=== PATIENT | female | born 1995 ===

== ENCOUNTER 2017-01-20 11:59 | Observation (INO) | payer OTHER ==
[2017-01-20 12:08] VITALS: BMI 28.3
[2017-01-20 12:09] VITALS: RESP 18
--- NOTE | 2017-01-20 12:25 | C.PDOC ---
History Of Present Illness 21 Y/O FEMALE, , APPX 8 WEEKS , PRESENTS C/O VAGINAL BLEEDING. PT SEEN IN ER ON 01/09/17 FOR SIMILAR. DENIES ABDOMINAL PAIN, NAUSEA, VOMITING, URINARY SYMPTOMS, DIZZINESS, OR OTHER ASSOC SX. PT NOTES SHE HAS HAD ULTRASOUND DURING THIS . NO OB FOLLOW UP SINCE LAST ER VISIT BUT NOTES APPOINTMENT SCHEDULED NEXT WEEK. US 01/10 = +IUP Time Seen by Provider: 01/20/17 12:21 Chief Complaint (Nursing): Female Genitourinary History Per: Patient History/Exam Limitations: no limitations Onset/Duration Of Symptoms: Days Current Symptoms Are (Timing): Still Present Pain Scale Rating Of: 0 Associated Symptoms: Other (VAGINAL BLEEDING). denies: Fever, Chills, Nausea, Vomiting, Urinary Symptoms Recent travel outside of the [place]: No Abnormal Vaginal Bleeding: Yes : 1 Para: 0 Miscarriage: 0 Past Medical History Reviewed: Historical Data, Nursing Documentation, Vital Signs Vital Signs: Last Vital Signs Temp 98.1 F 01/20/17 14:05 Pulse 99 H 01/20/17 14:05 Resp 18 01/20/17 14:05 BP 119/74 01/20/17 14:05 Pulse Ox 100 01/20/17 15:40 - Medical History PMH: No Chronic Diseases Family History: States: Unknown Family Hx - Social History Hx Alcohol Use: No Hx Substance Use: No - Immunization History Hx Tetanus Toxoid Vaccination: No Hx Influenza Vaccination: No Hx Pneumococcal Vaccination: No Review Of Systems Except As Marked, All Systems Reviewed And Found Negative. Constitutional: Negative for: Fever, Chills Cardiovascular: Negative for: Chest Pain Respiratory: Negative for: Shortness of Breath Gastrointestinal: Negative for: Nausea, Vomiting, Abdominal Pain Genitourinary: Positive for: Vaginal Bleeding. Negative for: Dysuria, Frequency Skin: Negative for: Rash Physical Exam - Physical Exam Appears: Non-toxic, No Acute Distress Skin: Normal Color, Warm, Dry Head: Atraumatic, Normacephalic Oral Mucosa: Moist Chest: Symmetrical Cardiovascular: Rhythm Regular Respiratory: Normal Breath Sounds, No Rales, No Rhonchi, No Wheezing Gastrointestinal/Abdominal: Soft, No Tenderness, No Guarding, No Rebound Back: Normal Inspection Extremity: Normal ROM, Capillary Refill (< 2 sec. ) Neurological/Psych: Oriented x3, Normal Speech, Normal Cognition ED Course And Treatment - Laboratory Results Result Diagrams: 01/20/17 13:04 01/20/17 13:04 O2 Sat by Pulse Oximetry: 100 (RA) Pulse Ox Interpretation: Normal - Other Rad PELVIC X-Ray: Read By Radiologist (Intrauterine corresponding to a gestational age of 7 weeks and 2 days with crown-rump length of 1.1 centimeters. heart rate of 150 beats per minute. ) Progress - Data Reviewed Data Reviewed: Old records ED OBSERVATION Discharge: Yes Date of observation admission: 01/20/17 Time of observation admission: 12:30 - Observation admission statement Patient is being placed in observation because:: +IUP, VAG BLEED - Goals of Observation Goals of observation are:: NEG SURG ABD - Progress Note Progress Note: 01/20/17 15:46 EXAM UNCH FROM PRIOR. VSS APPEARS COMFORTABLE. FU OBGYN Disposition Counseled Patient/Family Regarding: Studies Performed, Diagnosis, Need For Followup - Disposition Disposition: HOME/ ROUTINE Disposition Time: 15:46 Condition: GOOD - Clinical Impression Clinical Impression: Threatened in first trimester - Scribe Statement The provider has reviewed the documentation as recorded by the Scribe Edward Iraheta Provider Attestation: Provider Scribe Attestation: All medical record entries made by the Scribe were at my direction and personally dictated by me. I have reviewed the chart and agree that the record accurately reflects my personal performance of the history, physical exam, medical decision making, and the department course for this patient. I have also personally directed, reviewed, and agree with the discharge instructions and disposition.
[2017-01-20 12:58] LABS: RBC URINE 1268 /hpf (0-3); URINE BILIRUBIN NEGATIVE (NEGATIVE); URINE BLOOD 3+ (NEGATIVE); URINE COLOR Yellow (YELLOW); URINE GLUCOSE (UA) NORMAL (Normal); URINE KETONE TRACE mg/dL (NEGATIVE); URINE LEUKOCYTE ESTERASE TRACE Leu/uL (Negative); URINE PROTEIN 1+ mg/dL (NEGATIVE); URINE UROBILINOGEN NORMAL mg/dL (0.2-1.0); WBC URINE 26 /hpf (0-5)
[2017-01-20 13:19] LABS: BASO % 0.3 % (0.0-2.0); EOS # 0.1 K/uL (0.0-0.7); EOS % 1.4 % (0.0-4.0); HEMATOCRIT 33.9 % (34.0-47.0); LYMPH # 1.4 K/uL (1.0-4.3); LYMPH % 16.7 % (20.0-40.0); MEAN CELL VOLUME 77.1 fL (81.0-99.0); MEAN CORPUSCULAR HEMOGLOBIN 24.6 pg (27.0-31.0); MEAN PLATELET VOLUME 9.2 fL (7.2-11.7); MONO # 0.9 K/uL (0.0-0.8); MONO % 10.3 % (0.0-10.0); RED CELL DISTRIBUTION WIDTH 18.6 % (11.5-14.5); WHITE BLOOD COUNT 8.5 K/uL (4.8-10.8)
[2017-01-20 13:22] LABS: CHLORIDE 100 mmol/L (98-107); SODIUM 137 mmol/L (132-148)
[2017-01-20 13:23] LABS: POTASSIUM 3.5 mmol/L (3.6-5.2)
[2017-01-20 13:25] LABS: ALB/GLOB RATIO 1.2 (1.0-2.1); ALKALINE PHOSPHATASE 61 U/L (38-126); ALT/SGPT 30 U/L (9-52); AST/SGOT 19 U/L (14-36); BILIRUBIN,TOTAL 0.3 mg/dL (0.2-1.3); BLOOD UREA NITROGEN 12 mg/dL (7-17); CARBON DIOXIDE 24 mmol/L (22-30); GFR AFRICAN-AMERICAN > 60; GLUCOSE,RANDOM 87 mg/dL (65-105); TOTAL PROTEIN 8.1 g/dL (6.3-8.3)
[2017-01-20 13:26] LABS: CALCIUM 9.2 mg/dl (8.6-10.4)
--- NOTE | 2017-01-20 15:30 | US ---
Pelvic ultrasound History: . Vaginal bleeding. Evaluate for demise. Comparison: None available. Technique: Real-time sonography was performed through the pelvis utilizing transvaginal technique. Findings: Uterus: 10.7 x 5.9 x 7.1 centimeters. Anteverted. Posterior fibroid lesion measuring 2.6 x 2.2 x 2.8 centimeters and right-sided fibroid lesion measuring 2.5 x 2.6 x 2.9 centimeters. Cervix measures 3.4 centimeters. Intrauterine . Intrauterine gestational sac measuring 2.1 centimeters corresponding to a gestational age of 6 weeks and 5 days. Yolk sac identified measuring 3.3 millimeters. pole with crown-rump length measuring 1.1 centimeters corresponding to a gestational age of 7 weeks and 2 days. heart rate of 150 beats per minute. No free fluid in the pelvic cul-de-sac. Right ovary: 3.5 x 2.3 x 2.1 centimeters. Normal flow. Left ovary: 2.3 x 1.2 x 2.4 centimeters. Normal flow. Impression: Intrauterine corresponding to a gestational age of 7 weeks and 2 days with crown-rump length of 1.1 centimeters. heart rate of 150 beats per minute. Two prominent fibroid lesions in the uterus seen at the posterior and right aspect of the uterus measuring up to 2.8 and 2.9 centimeters respectively. Limited 1st trimester ultrasound for viability purposes only. Continued interval followup with serial ultrasound, serial HCG levels, and gynecological consultation would be helpful if clinically indicated.
[2017-01-20 15:54] VITALS: BP 135/88; PULSE 88; TEMP 98; O2SAT 99
== END 2017-01-20 15:49 | disposition home or self-care (01) ==
LOC: C.ER 11:59 → C.9OBSV 12:30
PROVIDERS: ADMIT Emergency Medicine; ATTEND Emergency Medicine
DX: O46.91 Antepartum hemorrhage, unspecified, first trimester (principal); Z3A.08 8 weeks gestation of pregnancy
CPT/HCPCS: 36415; 76805; 76817; 80053; 81001; 84702; 84703; 85025; 86850; 86900; 99284; G0378